=== PATIENT | female | born 1990 | race Caucasian/White ===

== ENCOUNTER 2024-04-28 02:21 | Emergency (ER) | payer OTHER ==
[~2024-04-28] VITALS: Ht 167.6 cm; Wt 117.0 kg
[2024-04-28] MEDS: ONDANSETRON HCL INJ 2MG/ML 2ML 2 MG/ML VIAL IV STA (03:09)
[2024-04-28] MEDS: KETOROLAC TROMETHAMINE 30 MG/ML VIAL IV STA (03:09)
[2024-04-28] MEDS ORDERED: ONDANSETRON ODT4 MG PO (03:38)
[2024-04-28] MEDS ORDERED: PEPCID AC10 MG PO (03:39)
[2024-04-28 03:52] VITALS: PULSE 62; RESP 16; TEMP 97.9; O2SAT 98
== END 2024-04-28 03:52 | disposition home or self-care (01) ==
LOC: FSED 02:28
DX: R10.31 Right lower quadrant pain (principal); R11.0 Nausea
CPT/HCPCS: 74176; 80053; 81003; 81025; 85025; 99284; J1885; J2405